=== PATIENT | female | born 2000 | race Caucasian/White ===

== ENCOUNTER 2025-07-01 17:47 | Emergency (ER) | payer SELFPAY ==
[~2025-07-01] VITALS: Ht 170.2 cm; Wt 70.1 kg
[2025-07-01 17:52] VITALS: BP 130/90; PULSE 86; TEMP 97.8; O2SAT 99
[2025-07-01] MEDS ORDERED: AMOX-115 PO (17:58)
--- NOTE | 2025-07-01 18:04 | Physician Documentation ---
History of Present Illness ~ Stated Complaint: TOOTH PAIN Time Seen by MD: 17:53 [facility] 25-year-old female presents to the ED with a complaint of left upper molar pain with swelling in his surrounding tissue. That she was recently treated for a tooth infection with the amoxicillin and the infection went away over the last three days she developed increased pain and swelling. Supposed to have a crown placed but can not go to the dentist until she treats her infection Day of Onset: Jul 01, 2025 Review of Systems All Other Systems at this time: Reviewed and Negative ROS As stated above in the HPI, otherwise all systems are reviewed and negative. Physical Exam Physical Exam General: Alert, no apparent distress. HEENT: PERRL, EOMI, no injection, moist mucous membranes. swelling redness in the surrounding tissue of the upper left molar non fluctuant masses Neck: Full range of motion. Respiratory: Lungs clear, no respiratory distress. Cardiovascular: Regular rate and rhythm, no murmurs. Neurologic: Oriented x4. Psychiatric: Normal mood and affect. Skin: Normal color, warm and dry. No edema, no ecchymosis. Medical Decision Making Additional information obtaine: old records Findings Treat this patient with the Augmentin for broader coverage and have her follow up with the dentist Ear Diff. Dx: Considerations: Unlikely: Abrasion, Cerumen impaction, Foreign body, Otitis externa, Barotrauma, Otitis media, Perforation, Referred pain- dental, Referred pain-pharyngitis, Referred pain-sinusitis, Referred pain-TMJ syn., Tympanic Membrane Injury, Other Eye Diff. Dx: Considerations: Unlikely: Chalazoin, Conjuctivits-allergic, Conjuctivitis-bacterial, Conjuctivits-chlamydial, Conjuctivitis-viral, Corneal abrasion, Corneal laceration, Corneal ulceration, Foreign body-conjuctiva, Foreign body-corneal, Foreign body-intraocular, Foreign body-lid, Glaucoma, Globe rupture, Hordeolum, Iritis, Orbital cellulitis, Periobital cellulitis, Retinal artery occulsion, Retinal vein occlusion, Rust ring, Subconjunctival hem, Ultraviolet keratitis, Uveitis, Vitreous hemorrhage, Other Nose Diff. Dx: Considerations: Unlikely: Abrasion, Anterior nasal bleed, Avulsion, Contusion, Coagulopathy, Fracture-nasal bone, Fracture-septum, Hypertension, Laceration, Other, Posterior nasal bleed, Retained foreign body, Septal hematoma Tooth Diff. Dx: Considerations: Include: Alveolar fracture, Aveolar osteitis, ANUG, Facial cellulitis, Periapical abscess, Periodontal abscess, Post- extraction bleeding, Pulpitis, Trigeminal neuralgia, Tooth-avulsion, Tooth- eruption, Tooth-fracture, Tooth-subluxation, Other Throat Diff Dx: Considerations: Unlikely: AIDS, Epiglottitis, Esophageal candidiasis, Hand foot mouth disease, Herpangina, Herpetic stomatitis, Herpes simplex, Infection mononucleosis, Immunodeficiency, Mo's angina, Peritonsillar abscess, Peritonsillar cellulitis, Pharyngitis-diphtheria, Pharyngitis-strepococcal, Pharyngitis-viral, Thrush, URI, Other Departure Disposition: 01 HOME / SELF CARE / HOMELESS Impression: Primary Impression: Tooth infection Referrals: NO PRIMARY CARE PROVIDER (PCP) Prescriptions Amox Tr/Potassium Clavulanate (Augmentin 500-125 Tablet) 1 Each Tablet 1 TAB PO Q12H for 10 Days, #20 TAB Prov: DINORAH LAU NP 07/01/25 Education Educated: Patient Signature Scribe Signature: t Attestation: Scribed for Emergency,Department by Dinorah Partida NP . 07/01/25 17:58 DINORAH LAU NP Jul 01, 2025 18:04
[2025-07-01] MEDS: amox tr/potassium clavulanate 500mg/125mg TAB PO ONE (18:23)
[2025-07-01 18:24] VITALS: RESP 16
[2025-07-01] MEDS: ketorolac trometh 30MG/ML vial 30 MG/ML VIAL IV ONE (18:24)
== END 2025-07-01 18:34 | disposition home or self-care (01) ==
LOC: ER 17:49
DX: K04.7 Periapical abscess without sinus (principal)
CPT/HCPCS: 96374; 99283; J1885